=== PATIENT | male | born 1955 | race Caucasian/White ===

== ENCOUNTER → 2018-11-28 | Outpatient (CLI) | payer OTHER ==
--- NOTE | 2018-11-28 15:28 | Diagnostic Imaging Report ---
Left Wrist MRI without contrast. History: Wrist pain. Fall. Decreased range of motion. Swelling. Comparison: None Technique: Coronal PD FS and PD. Axial PD FS. Sagital PD FS. 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 The lunotriquetral ligament is intact. Tearing of the triangular fibrocartilage complex at the radial insertion site best seen on coronal image 17. Distal radial ulnar joint effusion and synovitis. There is neutral ulnar variance. No osteochondral lesion. Nondisplaced intra-articular fracture involving the distal dorsal radius with associated bone marrow edema and adjacent soft tissue edema best seen on coronal image 10 through 12. No dislocation or avascular necrosis. The extensor tendons are intact. The flexor tendons are intact. Signal intensity within the median nerve is normal. No ganglion cyst. There is normal alignment of the wrist. There is dorsal capsular scarring and synovitis. Impression: Nondisplaced intra-articular fracture involving the distal dorsal radius with associated bone marrow edema and adjacent soft tissue edema. Tearing of the triangle fibrocartilage complex at the radial insertion site with distal radial ulnar joint effusion and synovitis. 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 Signed by: Dr. Melchor Melgar M.D. on 11/28/2018 3:24 PM
== END ==
LOC: MRI 14:22
PROVIDERS: ATTEND Family Medicine
DX: S69.92XD Unspecified injury of left wrist, hand and finger(s), subsequent encounter (principal)

== ENCOUNTER 2019-02-13 13:54 | Observation (INO) | payer OTHER ==
[~2019-02-13] VITALS: Ht 185.4 cm; Wt 121.1 kg
--- OUTSIDE RECORDS SUMMARY | 2019-02-13 13:57 | XMS REPORT ---
Author Author [facility] Address Unknown Phone Unavailable Care Team Providers Care [employer] Developer Name Role Phone JUSTA CHAVEZ Unavailable Unavailable Problems This patient has no known problems. Allergies, Adverse Reactions, Alerts This patient has no known allergies or adverse reactions. Medications This patient has no known medications. Results Test Description Test Time Test Comments Text Results Atomic Results Result Comments MRI WRIST LEFT WO 2018-11-28 15:19:00 [place] [address] Patient Name: PEREZ CABRERA MR #: [id number] : 1955 Age/Sex: 63/M Req #: [id number] Adm Physician: Ordered by: JUSTA CHAVEZ DO Report #: [id number] Location: MRI Room/Bed: Procedure: [id number] MRI/MRI WRIST LEFT WO Exam Date: Exam Time: REPORT STATUS: Signed Left Wrist MRI without contrast. History: Wrist pain. Fall. Decreased range of motion. Swelling. Comparison: None Technique: Coronal PD FS and PD. Axial PD FS. Sagital PD FS. 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 The lunotriquetral ligament is intact. Tearing of the triangular fibrocartilage complex at the radial insertion site best seen on coronal image 17. Distal radial ulnar joint effusion and synovitis. There is neutral ulnar variance. No osteochondral lesion. Nondisplaced intra- articular fracture involving the distal dorsal radius with associated bone marrow edema and adjacent soft tissue edema best seen on coronal image 10 through 12. No dislocation or avascular necrosis. The extensor tendons are intact. The flexor tendons are intact. Signal intensity within the median nerve is normal. No ganglion cyst. There is normal alignment of the wrist. There is dorsal capsular scarring and synovitis. Impression: Nondisplaced intra-articular fracture involving the distal dorsal radius with associated bone marrow edema and adjacent soft tissue edema. Tearing of the triangle fibrocartilage complex at the radial insertion site with distal radial ulnar joint effusion and synovitis. 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 Signed by: Dr. Melchor Melgar M.D. on 11/28/2018 3:24 PM Dictated By: MELCHOR MELGAR MD, MD 1524 Transcribed By: CELESTINE on 11/28/18 1524 COPY TO: JUSTA CHAVEZ DO
[2019-02-13 14:44] LABS: BASOPHILS % 0.3 % (0.0-1.0); EOSINOPHILS # (AUTO) 0.1 (0.0-0.4); EOSINOPHILS % 1.6 % (0.0-6.0); HEMATOCRIT 42.5 % (38.2-49.6); HEMOGLOBIN 14.3 g/dL (14.0-18.0); LYMPHOCYTES # (AUTO) 1.7 (1.0-3.2); MEAN CORPUSCULAR HEMOGLOBIN 31.6 pg (28-32); MEAN CORPUSCULAR HGB CONC 33.6 g/dL (31-35); MEAN CORPUSCULAR VOLUME 93.8 fL (81-99); MONOCYTES # (AUTO) 0.7 (0.2-0.8); MONOCYTES % 9.4 % (4.4-11.3); NEUTROPHILS % 66.4 % (38.7-80.0); PLATELET COUNT 168 x10e3/uL (140-360); RED BLOOD COUNT 4.53 x10e6/uL (4.3-5.7); RED CELL DISTRIBUTION WIDTH 13.3 % (11.7-14.4)
[2019-02-13 14:46] LABS: BILIRUBIN,URINE NEGATIVE (NEGATIVE); CLARITY,URINE SL CLOUDY (CLEAR); COLOR,URINE YELLOW (YELLOW); KETONES,URINE NEGATIVE (NEGATIVE); LEUKOCYTE ESTERASE ,URINE NEGATIVE (NEGATIVE); NITRITE,URINE NEGATIVE (NEGATIVE); PROTEIN,URINE DIPSTICK NEGATIVE (NEGATIVE); URINE UROBILINOGEN 0.2 mg/dL (0.2 - 1)
[2019-02-13 14:51] LABS: INR 1.01; PROTHROMBIN TIME 13.8 seconds (11.9-14.5)
[2019-02-13 14:52] LABS: PARTIAL THROMBOPLASTIN TIME 26.5 seconds (23.8-35.5)
--- NOTE | 2019-02-13 14:57 | Diagnostic Imaging Report ---
Examination: Single AP view of the chest. COMPARISON: None. INDICATION: Shortness of breath DISCUSSION: Lines/tubes: None. Lungs: The lungs are well inflated and clear. No pneumonia or pulmonary edema. Pleura: No pleural effusion or pneumothorax. Heart and mediastinum: The heart and the mediastinum are unremarkable. Bones and soft tissues: No acute bony abnormalities. IMPRESSION: 1. No acute cardiopulmonary abnormalities. Signed by: Dr. Gage Lucas M.D. on 02/13/2019 2:53 PM
[2019-02-13 14:59] LABS: ALBUMIN 3.7 g/dL (3.5-5.0); ALBUMIN/GLOBULIN RATIO 1.2 (0.8-2.0); ANION GAP 12.1 mmol/L (8-16); CALCIUM 9.3 mg/dL (8.4-10.2); CREATININE, SERUM 1.3 mg/dL (0.72-1.25); POTASSIUM 4.1 mmol/L (3.5-5.1)
[2019-02-13 14:59] LABS: BACTERIA,URINE FEW /HPF; EPITHELIAL CELLS,URINE FEW /LPF; MUCUS,URINE MODERATE (RARE)
[2019-02-13 15:05] LABS: CREATINE KINASE MB 3.9 ng/mL (0-5.0)
[2019-02-13] MEDS ORDERED: SODIUM CHLORIDE 0.9% 250ML 250 ML IV ONE (15:45)
[2019-02-13] MEDS ORDERED: RIVAROXABAN 20 MG TABLET PO SCH (17:00)
[2019-02-13] MEDS ORDERED: ASPIRIN 81 MG CHEW TAB PO ONE (17:15)
--- NOTE | 2019-02-13 17:25 | Diagnostic Imaging Report ---
CT of the chest, PE protocol, with contrast. History: Shortness of breath. Comparison: Chest radiograph from earlier 02/13/2019. Technique: Multidetector thin collimation CT scanning of the chest was performed from the level of the apices to the upper abdomen during the pulmonary arterial phase, after intravenous administration of contrast. Coronal and sagittal MIP reformations were obtained. RADIATION DOSE: Total DLP: 641.35 mGy*cm Dose modulation, iterative reconstruction, and/or weight based adjustment of the mA/kV was utilized to reduce the radiation dose to as low as reasonably achievable. FINDINGS: There is adequate opacification of the pulmonary arteries which distribute normally. There are expansile, central filling defects beginning within the bilateral lobar pulmonary arteries extending into the segmental and subsegmental branches of the bilateral upper, right middle, and bilateral lower lobes compatible with acute pulmonary emboli. The visualized structures within the base of the neck are unremarkable. The thoracic aorta is normal course and caliber. The heart is not enlarged. There is a trace, likely physiologic amount of pericardial fluid present. There is no abnormal axillary, mediastinal, or hilar lymph node enlargement. The trachea and proximal airways are patent. There is a wedge-shaped opacity within the medial left upper lobe with surrounding groundglass opacity. There is no evidence for lobar consolidation, pneumothorax, or pleural effusion. Limited views of the upper abdomen demonstrate no significant abnormalities. The osseous structures demonstrate degenerative changes without evidence for acute fracture or destructive process. The extrathoracic soft tissues are unremarkable. IMPRESSION: Extensive bilateral, acute appearing pulmonary emboli as detailed above. Wedge-shaped opacity with surrounding groundglass density identified within the left upper lobe which may reflect pulmonary infarct. An underlying soft tissue lesion cannot be entirely excluded and short-term follow-up examination is recommended. Findings discussed with the ordering physician at 5:08 PM on 02/13/2019. Signed by: Dr. Reinaldo Duron MD on 02/13/2019 5:21 PM
[2019-02-13] MEDS ORDERED: IOPAMIDOL 370 MG/ML 200 ML INFUS..BTL INJ ONE (18:56)
[2019-02-13] MEDS ORDERED: SODIUM CHLORIDE 0.9% 50ML 50 ML ONE (18:56)
[2019-02-13 19:00] VITALS: BP 149/86
[2019-02-13 20:26] VITALS: BP 149/86
[2019-02-13 20:40] VITALS: BP 149/86
[2019-02-13 23:46] VITALS: BP 123/93
[2019-02-14] VITALS (8 sets, daily range): BP systolic 115–139; BP diastolic 76–101
--- NOTE | 2019-02-14 01:21 | History and Physical ---
REASON FOR ADMISSION: A 63-year-old gentleman comes in with shortness of breath and left leg swelling. HISTORY OF PRESENT ILLNESS: This is Mr. Konstantin Nelson. About three months ago, the patient had a fall, sustained a left wrist fracture. The patient also had a left knee injury at that time. The patient had some swelling in the left knee, but the right wrist did have orthopedic evaluation, the patient was kept for about 3 days. About 3 days ago, the patient started to mow the lawn and suddenly felt shortness of breath and increased pain in the left lower extremity and tenderness in the left lower extremity, seen by his primary care physician, Dr. Estrella. The patient sent over to the ER and he was found to have DVT and pulmonary embolism in addition. PAST MEDICAL HISTORY: Noncontributory. SURGICAL HISTORY: History of herniorrhaphy and also scrotal varices removal. SOCIAL HISTORY: No EtOH. No IV drug abuse. ALLERGIES: NO DRUG ALLERGIES. REVIEW OF SYSTEMS: Positive for shortness of breath. No chest pain. No nausea, vomiting, or diarrhea. No constipation. No rectal bleeding. No hematochezia. No hematemesis. Positive for left lower extremity swelling and tenderness. MEDICATION: None. FAMILY HISTORY: Noncontributory either. PHYSICAL EXAMINATION: GENERAL: The patient is alert and oriented x3. VITAL SIGNS: Temperature 98.0, pulse oximetry of 98%, pulse of 80, respirations of 24, blood pressure is 126/87. HEENT: Normocephalic, atraumatic. Pupils are reactive to light and accommodation. CVS: S1, S2 normal. Regular rate and rhythm. ABDOMEN: Nontender, nondistended. LUNGS: Decreased air entry. EXTREMITIES: No clubbing. Left side knee with tenderness and also increase girth of the calf with tenderness, edema positive. IMAGING STUDIES: The patient's chest CT shows a wedge-shaped opacity identified within the left upper lobe, which may reflect pulmonary infarct, underlying soft tissue lesion cannot be excluded. Venous scan also shows a DVT. Chest x-ray, no acute cardiopulmonary abnormalities. ASSESSMENT: 1. Deep venous thrombosis, left lower extremity. 2. Pulmonary embolism with acute shortness of breath. 3. History of fall and history of lower extremity trauma. PLAN: The patient has already gotten one dose of Xarelto 20 mg. We will switch the patient's Xarelto 50 mg twice a day for 21 days and do an echocardiogram to see for right heart strain. EKG was within normal limits. The patient can be discharged tomorrow after 50 mg of Xarelto has been instituted. Further recommendation per clinical course. We will continue to monitor the patient and possible discharge tomorrow. MD DALLAS Chou/MODL /[id number]
[2019-02-14 05:19] LABS: BASOPHILS % 0.3 % (0.0-1.0); EOSINOPHILS # (AUTO) 0.2 (0.0-0.4); EOSINOPHILS % 4.1 % (0.0-6.0); HEMOGLOBIN 13.8 g/dL (14.0-18.0); LYMPHOCYTES # (AUTO) 1.4 (1.0-3.2); LYMPHOCYTES % 24.7 % (18.0-39.1); MEAN CORPUSCULAR HEMOGLOBIN 31.4 pg (28-32); MEAN CORPUSCULAR HGB CONC 33.7 g/dL (31-35); MEAN CORPUSCULAR VOLUME 93.4 fL (81-99); MONOCYTES # (AUTO) 0.7 (0.2-0.8); MONOCYTES % 11.3 % (4.4-11.3); NEUTROPHILS # (AUTO) 3.5 (2.1-6.9); NEUTROPHILS % 59.3 % (38.7-80.0); PLATELET COUNT 151 x10e3/uL (140-360); RED BLOOD COUNT 4.39 x10e6/uL (4.3-5.7); RED CELL DISTRIBUTION WIDTH 13.1 % (11.7-14.4)
[2019-02-14 05:39] LABS: ALBUMIN 3.3 g/dL (3.5-5.0); ALBUMIN/GLOBULIN RATIO 1.1 (0.8-2.0); ANION GAP 10.2 mmol/L (8-16); CALCIUM 8.9 mg/dL (8.4-10.2); CREATININE, SERUM 1.24 mg/dL (0.72-1.25); POTASSIUM 4.2 mmol/L (3.5-5.1)
--- NOTE | 2019-02-14 07:07 | Progress Note ---
DATE: SUBJECTIVE: A 63-year-old male comes in with acute DVT of the left popliteal vein with pulmonary embolism also. The patient has been started on Xarelto 15 mg b.i.d. the patient is on bedrest. Also, the patient is little upset about his DVT and pulmonary embolism. Diastolics have been running high. No chest pain. Shortness of breath lying down. No nausea, vomiting, or diarrhea. No leg pain at this time. OBJECTIVE: VITAL SIGNS: Temperature is 97.7, pulse of 70, respirations of 20, blood pressure is 123/98, pulse oximetry of 94% on room air. HEENT: Normocephalic, atraumatic. The patient is obese. CVS: S1 and S2 normal. Regular rate and rhythm. ABDOMEN: Nontender, nondistended. LUNGS: Clear to auscultation bilaterally. EXTREMITIES: Left lower extremity with increased tenderness and erythema and swelling in the left knee and popliteal area. The patient's right lower extremity with minimal amount of swelling. IMAGING STUDIES: As mentioned yesterday shows pulmonary embolism and extremity study shows DVT in the popliteal area. ASSESSMENT: 1. A 63-year-old gentleman with pulmonary embolism. 2. Deep vein thrombosis. 3. Dyspnea on exertion. 4. History of fall with lower extremity trauma. PLAN: Again is to continue with Xarelto 15 mg b.i.d. for 21 days. EKG within normal limits. We are awaiting for an echocardiogram to see for heart strain. The patient will be started on losartan 50 mg daily for diastolic blood pressure. Further recommendation per clinical course, and we will wait for echocardiogram for discharge planning. MD ISABEL ChouJ/MODL /[id number]
[2019-02-14 07:24] LABS: CREATINE KINASE MB 1.7 ng/mL (0-5.0)
[2019-02-14] MEDS: LOSARTAN POTASSIUM 25 MG TAB PO SCH (09:50)
[2019-02-14] MEDS: RIVAROXABAN 15 MG TABLET PO SCH ×2 (09:50→18:02)
[2019-02-14] MEDS ORDERED: RIVAROXABAN 20 MG TABLET PO SCH (17:00)
[2019-02-15 00:05] VITALS: BP 131/91
[2019-02-15 04:38] VITALS: BP 136/78
[2019-02-15 09:00] VITALS: BP 125/81
[2019-02-15] MEDS: LOSARTAN POTASSIUM 25 MG TAB PO SCH (09:10)
[2019-02-15] MEDS: RIVAROXABAN 15 MG TABLET PO SCH (09:10)
[2019-02-15 09:37] VITALS: BP 125/81
--- NOTE | 2019-02-15 10:04 | Progress Note ---
DATE: SUBJECTIVE: A 63-year-old male, who came in with acute DVT and pulmonary embolism. The patient is currently asymptomatic, has been walking. No shortness of breath noted. Today, the patient will be walked and also be assessed for home O2 Currently, otherwise, no symptoms. No chest pain. No shortness of breath on exertion. OBJECTIVE: VITAL SIGNS: Temperature is 98.2, pulse of 80, respirations of 20, blood pressure is 136/78, and room air 98%. HEENT: Normocephalic, atraumatic. Pupils are reactive to light and accommodation. CVS: S1, S2 normal. Regular rate and rhythm. LUNGS: Clear to auscultation. ABDOMEN: Nontender and nondistended. EXTREMITIES: Left lower extremity with swelling, also erythema and tenderness around the left knee. LABORATORY VALUES: None done. The patient's last hemoglobin was 13.8 and 41.0. Chemistries, EGFR is 59. The rest of the labs are within normal limits. The patient's troponins have been trended and was all negative. Echocardiogram was done. The patient's EF is 60%. The patient had concentric LVH and trace TR. At this point, the patient can be discharged home on 15 mg of Xarelto. ASSESSMENT: 1. Deep vein thrombosis, acute. 2. Pulmonary embolism, acute. 3. Hypertension with concentric LVH. PLAN: 1. Plan will be to send the patient home on Xarelto 15 mg twice a day for 21 days. 2. The patient has been started on losartan 50 mg. We will keep the patient on losartan. Follow up with his primary care physician and probably need an outpatient cardiology workup. Strict ER warnings have been given to the patient and also the patient has been advised not to exert himself for the next one week until he sees his primary care physician. For his acute kidney injury, the patient's creatinine function has improved to 1.24. Further recommendation per clinical course. The patient can be discharged today. MD DALLAS Chou/MODL /[id number]
== END 2019-02-15 10:00 | disposition home or self-care (01) ==
LOC: ER 13:54 → ERHOLD 17:55 → INTOOBSV 17:55 → IMCU 18:48
PROVIDERS: ADMIT Family Medicine; ATTEND Family Medicine
DX: I82.432 Acute embolism and thrombosis of left popliteal vein (principal); Z91.81 History of falling; I26.99 Other pulmonary embolism without acute cor pulmonale; Z87.81 Personal history of (healed) traumatic fracture; I10 Essential (primary) hypertension; I51.7 Cardiomegaly
CPT/HCPCS: 36415 ×2; 71045; 71260; 80053 ×2; 81001; 82550 ×2; 82553 ×2; 83880; 84484 ×2; 85025 ×2; 85379; 85610; 85730 ×2; 93005; 93306; 93970; 99284; G0378 ×3; Q9967

== ENCOUNTER → 2019-05-25 | Outpatient (CLI) | payer OTHER | LOC: RAD 08:23 | PROVIDERS: ATTEND Family Medicine | DX: I27.82 Chronic pulmonary embolism (principal); I82.532 Chronic embolism and thrombosis of left popliteal vein | CPT/HCPCS: 93971 ==

== ENCOUNTER 2021-06-11 08:00 | Observation (INO) | payer OTHER ==
[2021-06-09 10:49] LABS: BASOPHILS # (AUTO) 0.1 (0.0-0.1); BASOPHILS % 0.8 % (0.0-1.0); EOSINOPHILS # (AUTO) 0.2 (0.0-0.4); EOSINOPHILS % 2.5 % (0.0-6.0); HEMATOCRIT 47.2 % (38.2-49.6); HEMOGLOBIN 15.3 g/dL (14.0-18.0); LYMPHOCYTES # (AUTO) 1.1 (1.0-3.2); LYMPHOCYTES % 16.8 % (18.0-39.1); MEAN CORPUSCULAR HEMOGLOBIN 31.4 pg (28-32); MEAN CORPUSCULAR HGB CONC 32.4 g/dL (31-35); MEAN CORPUSCULAR VOLUME 96.7 fL (81-99); MONOCYTES # (AUTO) 0.8 (0.2-0.8); MONOCYTES % 12.5 % (4.4-11.3); NEUTROPHILS # (AUTO) 4.4 (2.1-6.9); NEUTROPHILS % 67.1 % (38.7-80.0); PLATELET COUNT 164 x10e3/uL (140-360); RED BLOOD COUNT 4.88 x10e6/uL (4.3-5.7); RED CELL DISTRIBUTION WIDTH 12.9 % (11.7-14.4)
[2021-06-09 10:59] LABS: INR 0.95; PROTHROMBIN TIME 13.4 seconds (11.9-14.5)
[2021-06-09 11:00] LABS: PARTIAL THROMBOPLASTIN TIME 24.1 seconds (23.8-35.5)
[2021-06-09 11:03] LABS: ANION GAP 13.1 mmol/L (8-16); CALCIUM 9.2 mg/dL (8.4-10.2); CREATININE, SERUM 1.35 mg/dL (0.72-1.25); POTASSIUM 4.1 mmol/L (3.5-5.1)
[~2021-06-11] VITALS: Ht 182.9 cm; Wt 120.2 kg
[~2021-06-11 08:00] MED LIST: FLOMAX0.4 MG PO; LIDOCAINE 1% W/EPINEPHRINE 20 ML VIAL ONE; LOSARTAN POTASS25 MG PO; SODIUM CHLORIDE 0.9% 50ML 100 ML ONE; TERBINAFINE HC250 MG PO; THROMBIN FOR SOLN 5,000 UNIT VIAL ONE; Vancomycin IV 1 GM VIAL ONE
[2021-06-11] MEDS ORDERED: PROMETHAZINE HCL (IM) 25 MG/ML VIAL IM PRN (09:30)
[2021-06-11] MEDS ORDERED: ONDANSETRON HCL INJ 2MG/ML 2ML 2 MG/ML VIAL IV PRN (09:30)
[2021-06-11] MEDS ORDERED: MAGNESIUM/ALUMINUM/SIMETHICONE 30 ML UDC PO PRN (09:30)
[2021-06-11] MEDS ORDERED: ZOLPIDEM TARTRATE 5 MG TAB PO PRN (09:30)
[2021-06-11] MEDS ORDERED: CARISOPRODOL 350 MG TAB PO PRN (09:30)
[2021-06-11] MEDS ORDERED: HYDROMORPHONE 2MG/ML 2 MG/ML ML IV PRN (09:30)
[2021-06-11] MEDS ORDERED: ACETAMINOPHEN 325 MG TAB PO PRN (09:30)
[2021-06-11] MEDS ORDERED: Morphine 4mg Syringe 4 MG/ML INJ IM PRN (09:30)
[2021-06-11] MEDS ORDERED: HYDROCODON-ACE1 EA12 PO (09:32)
[2021-06-11] MEDS ORDERED: FENTANYL CITRATE/PF 100MCG/2 ML INJ ONE ×2 (10:00→13:23)
[2021-06-11] MEDS ORDERED: Morphine 4mg Syringe 4 MG/ML INJ ONE (10:49)
[2021-06-11] MEDS: LACTATED RINGER'S 1,000 ML IV SCH ×2 (13:00→21:05)
[2021-06-11] MEDS ORDERED: ROCURONIUM BROMIDE 10 MG/ML 5ML VIAL IV ONE (13:07)
[2021-06-11] MEDS ORDERED: ONDANSETRON HCL INJ 2MG/ML 2ML 2 MG/ML VIAL ONE (13:07)
[2021-06-11] MEDS ORDERED: DEXAMETHASONE SOD PHOS INJ 4 MG/ML SDV ONE (13:07)
[2021-06-11] MEDS ORDERED: LIDOCAINE HCL 2% LOCAL INJ 5 ML SDV VIAL INJ ONE (13:07)
[2021-06-11] MEDS ORDERED: SEVOFLURANE INHAL SOLN 250 ML PEN BTL ONE (13:07)
[2021-06-11] MEDS ORDERED: EPHEDRINE SULFATE INJ 50 MG/ML VIAL ONE (13:07)
[2021-06-11] MEDS ORDERED: POVIDONE IODINE 0.05% 0.05 % ML PO ONE (13:07)
[2021-06-11] MEDS ORDERED: PROPOFOL IV EMULSION 10 MG/ML 20 ML VIAL ONE (13:07)
[2021-06-11] MEDS ORDERED: MIDAZOLAM HCL 2 MG/2 ML VIAL ONE (13:23)
[2021-06-11] MEDS: Cefazolin 1 GM in SODIUM CHLORIDE 0.9% 50ML 50 ML IV SCH ×2 (14:55→23:30)
[2021-06-11 15:11] VITALS: BP 135/78
[2021-06-11 15:12] VITALS: BP 135/78
[2021-06-11 15:19] VITALS: BP 135/78
[2021-06-11] MEDS: OXYCODONE/ACETAMINOPHEN 5-325 1 EACH TABLET PO PRN (18:10)
[2021-06-11 20:00] VITALS: BP_SYST 127; BP_SYST 135; BP_DIAS 76; BP_DIAS 78
[2021-06-12] VITALS: BP 124/79
[2021-06-12] MEDS: LACTATED RINGER'S 1,000 ML IV SCH (03:54)
[2021-06-12 05:59] VITALS: BP 123/78
[2021-06-12] MEDS: Cefazolin 1 GM in SODIUM CHLORIDE 0.9% 50ML 50 ML IV SCH (07:29)
[2021-06-12] MEDS: OXYCODONE/ACETAMINOPHEN 5-325 1 EACH TABLET PO PRN (07:40)
[2021-06-12 08:59] VITALS: BP 123/78
[2021-06-12] MEDS ORDERED: TERBINAFINE 250 MG TAB PO SCH (09:00)
[2021-06-12] MEDS ORDERED: LOSARTAN POTASSIUM 25 MG TAB PO SCH (09:00)
[2021-06-12] MEDS ORDERED: TAMSULOSIN HCL 0.4 MG CAP PO SCH (09:00)
== END 2021-06-12 10:18 | disposition home or self-care (01) ==
LOC: OR 08:00 → PACU V 09:28 → MED/SURG 12:04
PROVIDERS: ADMIT Neurological Surgery; ATTEND Neurological Surgery
DX: M48.062 Spinal stenosis, lumbar region with neurogenic claudication (principal); M51.16 Intervertebral disc disorders with radiculopathy, lumbar region; I10 Essential (primary) hypertension; Z01.810 Encounter for preprocedural cardiovascular examination; Z01.812 Encounter for preprocedural laboratory examination; Z01.818 Encounter for other preprocedural examination; Z20.822 Contact with and (suspected) exposure to COVID-19
CPT/HCPCS: 36415; 63047; 63048; 71046; 72020; 80048; 85025; 85610; 85730; 86850; 86900; 88304; 88311; 93005; G0378 ×2; J0690 ×2; J1100; J2001; J2250; J2270; J2405; J2704; J3010; J3370; J7121; U0002

== ENCOUNTER → 2025-01-15 | Day surgery (SDC) | payer OTHER ==
[2025-01-11 12:13] LABS: BASOPHILS % 0.7 % (0.0-1.0); EOSINOPHILS % 1.7 % (0.0-6.0); LYMPHOCYTES % 25.0 % (18.0-39.1); MONOCYTES % 9.5 % (4.4-11.3); NEUTROPHILS % 62.9 % (38.7-80.0); RED CELL DISTRIBUTION WIDTH 13.4 % (11.7-14.4)
[~2025-01-15] MED LIST changes: +ACETAMINOPHEN 1000 MG/100 ML 100 ML IV ONE; +DEXAMETHASONE SOD PHOS INJ 4 MG/ML SDV ONE; +EPHEDRINE SULFATE INJ 50 MG/ML VIAL ONE; +FAMOTIDINE 20 MG/2 ML VIAL IV ONE; +FENTANYL CITRATE/PF 100MCG/2 ML INJ ONE; +GLYCOPYRROLATE INJ 0.2 MG/ML VIAL ONE; +HYDROCODON-ACE1 EA11 PO; +HYDROCODON-ACE1 EA12 PO; -LIDOCAINE 1% W/EPINEPHRINE 20 ML VIAL ONE; +LIDOCAINE HCL 2% LOCAL INJ 5 ML SDV VIAL INJ ONE; +MIDAZOLAM HCL 2 MG/2 ML VIAL ONE; +MULTI-VITAMIN1 EACH PO; +ONDANSETRON HCL INJ 2MG/ML 2ML 2 MG/ML VIAL ONE; +PROPOFOL IV EMULSION 10 MG/ML 20 ML VIAL ONE; -SODIUM CHLORIDE 0.9% 50ML 100 ML ONE; -THROMBIN FOR SOLN 5,000 UNIT VIAL ONE; -Vancomycin IV 1 GM VIAL ONE
[2025-01-15] MEDS: LACTATED RINGER'S 1,000 ML ONE (06:50)
[2025-01-15 11:40] VITALS: BP 136/83; PULSE 64; RESP 18; O2SAT 99
== END | disposition home or self-care (01) ==
LOC: OR 06:04
PROVIDERS: ATTEND Plastic Surgery
DX: M72.0 Palmar fascial fibromatosis [Dupuytren] (principal); I10 Essential (primary) hypertension; E66.01 Morbid (severe) obesity due to excess calories; E66.811 Obesity, class 1; Z68.34 Body mass index [BMI] 34.0-34.9, adult; Z01.810 Encounter for preprocedural cardiovascular examination; Z01.812 Encounter for preprocedural laboratory examination
CPT/HCPCS: 26121; 26123; 26125; 36415; 71046; 85025; 88304; 88342; 93005; J0131; J0690; J1100; J1308; J2003; J2250; J2405; J2704; J3010; J7121